=== PATIENT | male | born 1995 | race Hispanic/Latino ===

== ENCOUNTER 2017-11-18 14:31 | Emergency (ER) | payer SELFPAY ==
[2017-11-18] MEDS ORDERED: ORPHENADRINE CITRATE 30 MG/ML ML ONE (15:25)
== END 2017-11-18 15:34 | disposition home or self-care (01) ==
LOC: EDH 14:31
DX: M62.830 Muscle spasm of back (principal); M54.5 Low back pain; Z72.0 Tobacco use
CPT/HCPCS: 96372; 99283; J2360

== ENCOUNTER 2018-12-04 20:14 | Inpatient (IN) | payer SELFPAY, OTHER | END 2018-12-05 12:14 | disposition home or self-care (01) | LOC: EDH 20:14 → 4BH 12-05 01:50 → EDHIP 20:15 ==